=== PATIENT | male | born 1995 | race Caucasian/White ===

== ENCOUNTER 2017-08-16 23:56 | Inpatient (IN) | payer MEDICAID ==
[~2017-08-16] VITALS: Ht 182.9 cm; Wt 128.6 kg
[2017-08-17 05:23] VITALS: BP 125/77
[2017-08-17] MEDS ORDERED: INFLUENZA VIRUS VACCINE QVS 2017-18 (3YR+)/PF 60 MCG/0.5 ML SYRINGE IM ONE (06:15)
[2017-08-17 08:22] LABS: BASOPHILS # (AUTO) 0.01 K/uL (0.00-0.20); BASOPHILS % (AUTO) 0.2 % (0.0-2.0); EOSINOPHILS # (AUTO) 0.11 K/uL (0.00-0.70); EOSINOPHILS % (AUTO) 1.48 % (1.0-6.0); HEMATOCRIT 51.2 % (41-53); HEMOGLOBIN 17.7 g/dL (13.5-17.5); LYMPHOCYTES # (AUTO) 2.1 K/uL (1.0-4.8); LYMPHOCYTES % (AUTO) 28.6 % (22.0-44.0); MEAN CORPUSCULAR HEMOGLOBIN 30.5 pg (26.0-34.0); MEAN CORPUSCULAR HGB CONC 34.5 G/dL (31.0-37.0); MEAN CORPUSCULAR VOLUME 88 fL (80-100); MONOCYTES # (AUTO) 0.5 K/uL (0.1-1.0); MONOCYTES % (AUTO) 6.5 % (2.0-9.0); NEUTROPHILS # (AUTO) 4.7 K/uL (1.8-7.7); NEUTROPHILS % (AUTO) 63.2 % (40.0-70.0); PLATELET COUNT (AUTO) 267 K/uL (150-450); RED BLOOD CELL COUNT(AUTO) 5.81 MIL/uL (4.50-5.90); RED CELL DISTRIBUTION WIDTH 13.3 % (11.5-14.5); WHITE BLOOD COUNT (AUTO) 7.4 K/uL (4.5-11.0)
[2017-08-17 08:28] VITALS: BP 114/60
[2017-08-17 08:35] LABS: ALANINE AMINOTRANSFERASE 50 U/L (12-78); ALBUMIN 4.6 g/dL (3.4-5.0); ANION GAP 9 mmol/L (8-16); ASPARTATE AMINOTRANSFERASE 27 U/L (15-37); BILIRUBIN,TOTAL 0.5 mg/dL (0.1-1.0); CALCIUM, TOTAL 9.9 mg/dL (8.8-10.5); CARBON DIOXIDE 28 mmol/L (22-29); CHLORIDE 102 mmol/L (98-107); CREATININE 0.97 mg/dL (0.60-1.30); GLOMERULAR FILTR. RATE CALC > 60 mL/min (>60); POTASSIUM 4.8 mmol/L (3.5-5.1); SODIUM SERUM 139 mmol/L (136-145); THYROID STIMULATING HORMONE 2.57 uIU/mL (0.36-3.74); UREA NITROGEN, BLOOD 14 mg/dL (7-18)
[2017-08-17 08:40] LABS: HEMOGLOBIN A1C 5.3 % (4.5-6.2)
[2017-08-17] MEDS: OMEGA-3/DHA/EPA/FISH OIL 1,000 MG CAPSULE PO SCH (10:34)
[2017-08-17 16:00] VITALS: BP 136/88
[2017-08-17] MEDS: HALOPERIDOL 5 MG TABLET PO PRN (16:45)
[2017-08-17] MEDS: LORazepam 2 MG TABLET PO PRN (16:45)
[2017-08-17] MEDS: OLANZapine 5 MG TABLET PO SCH (20:34)
[2017-08-17] MEDS: ZOLPIDEM TARTRATE 10 MG TABLET PO PRN (20:34)
[2017-08-18 06:54] VITALS: BP 120/71
[2017-08-18] MEDS: OMEGA-3/DHA/EPA/FISH OIL 1,000 MG CAPSULE PO SCH (08:16)
[2017-08-18] MEDS: LORazepam 2 MG TABLET PO PRN ×2 (08:17→16:15)
[2017-08-18] MEDS: HALOPERIDOL 5 MG TABLET PO PRN ×2 (08:17→16:15)
[2017-08-18 08:24] VITALS: BP 132/65
[2017-08-18] MEDS: LamoTRIgine 100 MG TABLET PO SCH ×2 (09:45→16:15)
[2017-08-18] MEDS ORDERED: OMEGA-3/DHA/EPA/FISH OIL 1,000 MG CAPSULE PO SCH (10:24)
[2017-08-18 16:00] VITALS: BP 122/75
[2017-08-18] MEDS: ZOLPIDEM TARTRATE 10 MG TABLET PO PRN (20:13)
[2017-08-18] MEDS: OLANZapine 5 MG TABLET PO SCH (20:13)
[2017-08-19 06:40] VITALS: BP 126/74
[2017-08-19] MEDS: LORazepam 2 MG TABLET PO PRN ×3 (07:51→17:46)
[2017-08-19] MEDS: HALOPERIDOL 5 MG TABLET PO PRN ×2 (07:51→13:34)
[2017-08-19] MEDS: OMEGA-3/DHA/EPA/FISH OIL 1,000 MG CAPSULE PO SCH (08:00)
[2017-08-19] MEDS: LamoTRIgine 100 MG TABLET PO SCH ×2 (08:00→16:46)
[2017-08-19 08:46] VITALS: BP 131/88
[2017-08-19 16:00] VITALS: BP 126/77
[2017-08-19] MEDS ORDERED: OLAN5TAB2 PO (17:29)
[2017-08-19] MEDS ORDERED: LAMO100T56 PO (17:29)
[2017-08-19] MEDS ORDERED: OMEG-12 PO (17:29)
[2017-08-19] MEDS ORDERED: ALBUTEROL SULFATE HFA 90 MCG/PUFF 8 GM INHALER IH PRN (17:45)
[2017-08-19] MEDS ORDERED: BACITRACIN 28.4 GM OINTMENT TP PRN (17:45)
[2017-08-19] MEDS ORDERED: MAGNESIUM HYDROXIDE SUSPENSION 30 ML UDCUP PO PRN (17:45)
[2017-08-19] MEDS ORDERED: IBUPROFEN 600 MG TABLET PO PRN (17:45)
[2017-08-19] MEDS ORDERED: CloNIDine HCL 0.1 MG TABLET PO PRN (17:45)
[2017-08-19] MEDS ORDERED: LOPERAMIDE HCL 2 MG CAPSULE PO PRN (17:45)
[2017-08-19] MEDS ORDERED: PETROLATUM,WHITE 71 GM JELLY TP PRN (17:45)
[2017-08-19] MEDS ORDERED: ACETAMINOPHEN 325 MG TABLET PO PRN (17:45)
[2017-08-19] MEDS ORDERED: MAG HYDROX/AL HYDROX/SIMETH ES 30 ML SUSPENSION UDCUP PO PRN (17:45)
[2017-08-19] MEDS ORDERED: ONDANSETRON HCL 4 MG TABLET PO PRN (17:45)
[2017-08-19] MEDS ORDERED: BENZOCAINE/MENTHOL LOZENGE MM PRN (17:45)
[2017-08-20] MEDS ORDERED: OMEPRAZOLE 20 MG CAPSULE PO SCH (09:00)
[2017-08-20] MEDS ORDERED: CHOLECALCIFEROL (VIT D3) 1,000 UNITS TABLET PO SCH (09:00)
[2017-08-20] MEDS ORDERED: DOCUSATE SODIUM 100 MG CAPSULE PO SCH (09:00)
== END 2017-08-19 20:15 | disposition home or self-care (01) | DRG 751 ==
LOC: B3A 08-17 04:14
PROVIDERS: ADMIT Psychiatry & Neurology Psychiatry; ATTEND Psychiatry & Neurology Psychiatry
DX: F29 Unspecified psychosis not due to a substance or known physiological condition (principal); R56.9 Unspecified convulsions; F84.0 Autistic disorder; E66.9 Obesity, unspecified; G47.00 Insomnia, unspecified; E78.00 Pure hypercholesterolemia, unspecified; F12.90 Cannabis use, unspecified, uncomplicated; F41.9 Anxiety disorder, unspecified; Z56.0 Unemployment, unspecified; Z68.38 Body mass index [BMI] 38.0-38.9, adult; Z71.51 Drug abuse counseling and surveillance of drug abuser
CPT/HCPCS: 82306; 83036; 84439; 84443; 99285